=== PATIENT | male | born 1995 | race Caucasian/White ===

== ENCOUNTER 2022-07-03 16:29 | Emergency (ER) | payer OTHER, SELFPAY ==
--- NOTE | ~2022-07-03 | XR_ITS ---
EXAMINATION: XR lumbar spine 2-3V CLINICAL INFORMATION: Reason for Exam pain, no injury COMPARISON: Lumbar spine radiographs TECHNIQUE: 3 views of the lumbar spine FINDINGS: 5 nonrib-bearing lumbar-type vertebral bodies. Vertebral body heights are maintained. Alignment is maintained. Disc space heights are maintained. Paravertebral soft tissues are unremarkable. XR/XR lumbar spine 2-3V IMPRESSION: * No significant degenerative disc disease.
[2022-07-03 16:32] VITALS: BP 114/78; PULSE 100; RESP 16; TEMP 37.2; O2SAT 96; BMI 23.7
--- NOTE | 2022-07-03 17:52 | ED.BACK ---
HPI - Back Pain/Injury General Chief Complaint: Back Pain/Injury Stated Complaint: severe lower back pain Time Seen by Provider: 07/03/22 17:47 Source: patient Mode of arrival: ambulatory Limitations: no limitations History of Present Illness HPI Narrative: 26-year-old male with a past medical history of mental health presents with lower back pain with waking this morning. No known injury or trauma. Patient does report previous episodes of similar pain which resolved with medications. No radiation of pain. No numbness in the groin. No bowel or bladder incontinence. No fevers or chills. Related Data Previous Rx's Medication Instructions Recorded cyclobenzaprine 10 mg tablet 10 mg PO TID PRN muscle spasm #15 07/03/22 tabs lidocaine 5 % topical patch 1 patch topical DAILY #15 ea 07/03/22 (Lidoderm) naproxen 500 mg tablet 500 mg PO BID PRN pain #30 tabs 07/03/22 Allergies Allergy/AdvReac Type Severity Reaction Status Date / Time No Known Allergies Allergy Verified 07/03/22 16:34 Review of Systems Review of Systems: Yes all other systems are reviewed and are negative Constitutional: Constitutional: Reports no additional constitutional complaints, Denies body ache(s), Denies chills, Denies fever(s), Denies headache(s) and Denies weakness Eyes: Eyes: Reports no additional eye complaints and Denies change in vision ENT: Reports system reviewed and no additional complaints, except as documented, Denies dizziness, Denies headache(s), Denies nasal congestion, Denies nasal discharge and Denies neck pain Cardiovascular: Cardiovascular: Reports no additional cardiovascular complaints, Denies chest pain, Denies leg edema and Denies dyspnea Respiratory: Respiratory: Reports no additional respiratory complaints, Denies cough and Denies dyspnea Gastrointestinal: Gastrointestinal: Reports no additional gastrointestinal complaints, Denies abdominal pain, Denies diarrhea, Denies nausea and Denies vomiting Genitourinary: Genitourinary: Denies urinary incontinence Musculoskeletal: Musculoskeletal: Reports no additional musculoskeletal complaints, Reports back pain, Denies arthralgias, Denies joint swelling, Denies neck pain, Denies numbness and Denies tingling Integumentary/Breasts: Skin/Breast: Reports system reviewed and no additional complaints, except as docu and Denies rash Neurologic: Reports system reviewed and no additional complaints, except as documented, Denies Abnormal speech present, Denies dizziness, Denies headache(s), Denies numbness, Denies tingling and Denies weakness PMFSH Past Medical History Attestation statement: The following information was validated with the patient. Source: old records reviewed and nursing notes reviewed Social History Social History (Updated 07/03/22 @ 17:54 by Renee Grijalva NP) Alcohol intake: never Patient Tobacco Use Status: Current everyday Tobacco user Use of substances other than those prescribed or required for medical reasons: No Advance Directives: No Advance Directives Information Provided: No Physical Exam Vital Signs: Vital Signs: Last Vital Signs Temp 98.9 F 07/03/22 16:32 Pulse 100 07/03/22 16:32 Resp 16 07/03/22 16:32 BP 114/78 07/03/22 16:32 Pulse Ox 96 07/03/22 16:32 O2 Del Method 07/03/22 16:32 BMI result Body Mass Index 23.7 Const: General: cooperative, healthy appearing, comfortable and no acute distress Orientation/consciousness: patient oriented x3 Limitations: no limitations HEENT: Head: Yes normal to inspection Ears: hearing grossly normal bilaterally General nose exam: Normal external nose present Face and sinus: Yes normal facial exam Mouth: Normal oral and palatal mucosa present Throat: Yes posterior oropharynx normal Eyes: General: appearance normal, both eyes and all related structures Pupils: Equal, round and reactive pupils present Neck: Neck: Yes normal visual inspection Chest: Chest palpation & inspection: normal inspection of the chest Resp: Effort & Inspection: normal respiratory effort Auscultation: clear to auscultation bilaterally Cardio: Rate: regular rate Rhythm: regular rhythm Peripheral pulses: Peripheral pulses 2+ throughout GI: Inspection: Yes normal to inspection Palpation (GI): Soft to palpation and nontender Auscultation: normal bowel sounds Back/Spine/Pelvis: Other: Tenderness the lumbar mid spine with no step-offs deformities. Pain is worsened with flexion and extension of lumbar spine Thoracic/Lumbar Spine: thoracic and lumbar spine normal to inspection Skin: General skin exam: no rashes or lesions noted Neuro: General: patient oriented x3, moves all extremities, no focal motor deficits and normal sensation to monofilament Cranial nerves: Yes CN's II-XII intact bilaterally, Yes Equal, round and reactive pupils present, Yes Bilaterally intact EOM present, Yes Nystagmus not present, Yes Normal facial strength present and Yes Midline tongue present Cognition (Neuro): normal cognition Speech: No Abnormal speech present Gait exam (Neuro): Normal gait present Motor exam (neuro): 5/5 motor strength present throughout Sensory Exam: Normal double simultaneous stimulation for sensation Deep tendon reflexes (DTR's): Right patellar reflex intensity grade: 2+ and Left patellar reflex intensity grade: 2+ Extrem: General: Yes normal to inspection Course Course Course Narrative: X-ray show no bony abnormality. ? lumbar strain or lumbar radiculopathy or herniated disc. Will discharge home with NSAID, low-dose muscle relaxant, medicated patches. Reviewed worrisome signs and symptoms of when to return to the emergency room. Comfortable discharge home. Low concern for epidural abscess with no history of IV drug abuse, immunocompromised state, reports of fever, neurological deficits. Low concern for cord compression with no neurological deficits, reports of incontinence or retention or saddle anesthesia MDM - Back Pain/Injury MDM Narrative Medical decision making narrative: 26-year-old male here with reports of waking with low back pain. No injury or trauma. No neurological deficits or red flag symptoms. Check x-rays due to midline tenderness and provide analgesia Medical Records Attestation: I reviewed the patient's medical records. Lab Data Attestation: I reviewed the patient's lab results. Imaging Data lumbar x-ray: Attestation: I personally reviewed and interpreted this imaging study as follows: Radiologist's impression: [address] [address] XRay Report Signed Patient: Hector Menezes MR#: [id number] : 1995 Acct:[id number] Age/Sex: 26 / M ADM Date: 07/03/22 Loc: [facility].ED Attending Dr: Ordering Physician: Renee Grijalva NP Date of Service: 07/03/22 Procedure(s): XR lumbar spine 2-3V Accession Number(s): [id number] cc: Renee Grijalva NP~ EXAMINATION: XR lumbar spine 2-3V CLINICAL INFORMATION: Reason for Exam pain, no injury COMPARISON: Lumbar spine radiographs TECHNIQUE: 3 views of the lumbar spine FINDINGS: 5 nonrib-bearing lumbar-type vertebral bodies. Vertebral body heights are maintained. Alignment is maintained. Disc space heights are maintained. Paravertebral soft tissues are unremarkable. XR/XR lumbar spine 2-3V IMPRESSION: ? *? No significant degenerative disc disease. ? ? Discharge Plan Discharge Clinical Impression: Strain of lumbar region Patient Disposition: Home, Self-Care Instructions: Low Back Strain (ED), Lower Back Exercises (ED) Additional Instructions: heat or ice gentle stretching no heavy lifting or bending Follow-up with your PCP for any persistent symptoms Prescriptions: New cyclobenzaprine 10 mg tablet 10 mg PO TID PRN (Reason: muscle spasm) Qty: 15 0RF naproxen 500 mg tablet 500 mg PO BID PRN (Reason: pain) Qty: 30 0RF lidocaine [Lidoderm] 5 % adhesive patch,medicated 1 patch topical DAILY Qty: 15 0RF Rx Instructions: leave on most painful area for up to 12 hrs Referrals: Physician,Unknown J [Primary Care Provider] - 1 week (for persistent symptoms )
[2022-07-03] MEDS: Ketorolac Tromethamine 60 MG/2 ML VIAL IM (18:11)
== END 2022-07-03 19:02 | disposition home or self-care (01) ==
PROVIDERS: Emergency Provider Emergency Medicine
DX: S39.012A Strain of muscle, fascia and tendon of lower back, initial encounter (principal); X58.XXXA Exposure to other specified factors, initial encounter; F17.200 Nicotine dependence, unspecified, uncomplicated; Y93.84 Activity, sleeping; Y92.013 Bedroom of single-family (private) house as the place of occurrence of the external cause; Y99.9 Unspecified external cause status
CPT/HCPCS: 72100; 96372; 99283; 99284; J1885

== ENCOUNTER 2023-10-06 16:45 | Emergency (ER) | payer OTHER, SELFPAY ==
[2023-10-06 17:07] VITALS: BP 137/80; PULSE 105; RESP 16; TEMP 36.4; O2SAT 95; BMI 29.3
--- NOTE | 2023-10-06 18:10 | ED_ITS ---
HPI - General Adult General Chief complaint: Skin/Abscess/Foreign Body Stated complaint: scabies Time Seen by Provider: 10/06/23 17:14 Source: patient Mode of arrival: ambulatory Limitations: no limitations History of Present Illness HPI narrative: 28-year-old male presents ED for generalized body itching. Patient exposed to confirmed case of scabies at nursing home. Patient's other nursing home members also having symptoms. Patient denies any chest pain or shortness of breath Related Data Previous Rx's Medication Instructions Recorded ondansetron HCl 4 mg tablet 4 mg PO Q8H PRN nausea and 03/02/23 vomiting 5 days #15 tabs permethrin 5 % topical cream 1 appl topical Q14D 2 doses #60 10/06/23 grams Allergies Allergy/AdvReac Type Severity Reaction Status Date / Time No Known Allergies Allergy Verified 10/06/23 17:07 Review of Systems Review of Systems: KB exposure, itchiness Yes all other systems are reviewed and are negative [facility] Social History Social History Alcohol intake: never Patient Tobacco Use Status: Current everyday Tobacco user Advance Directives: No Advance Directives Information Provided: No Physical Exam ED Vital Signs: Vital Signs - 24 hr 10/06/23 17:07 Temperature 97.6 F Pulse Rate 105 H Respiratory Rate 16 Blood Pressure 137/80 Pulse Oximetry 95 Oxygen Delivery Method Room Air BMI result Body Mass Index 29.3 Const General: cooperative, healthy appearing, comfortable, no acute distress, well developed, alert, awake and Physically active Orientation/consciousness: oriented to person, oriented to place, oriented to time and patient oriented x3 HENMT Head: Yes normal to inspection, Yes No palpable skull fracture present, Yes normocephalic and Yes atraumatic Eyes General: appearance normal, both eyes and all related structures Neck Neck: Yes normal visual inspection, Yes full ROM, Yes no lymphadenopathy, Yes no meningeal signs, Yes trachea midline, Yes supple, No anterior neck swelling and No tender Chest Chest palpation & inspection: normal inspection of the chest Resp Effort & Inspection: normal respiratory effort and able to speak in complete sentences Auscultation: clear to auscultation bilaterally Cardio Jugular venous distension: no JVD Heart sounds: S1 normal heart sound present and S2 normal heart sound present GI Inspection: Yes normal to inspection Palpation (GI): not firm, nontender, no guarding and not rigid General: No CVA tenderness and Yes no CVA tenderness Back/Spine/Pelvis Back: no CVA tenderness, No CVA tenderness and No back tenderness Skin General skin exam: no rashes or lesions noted, elasticity normal and turgor normal Neuro General: oriented to person, oriented to place, oriented to time, patient oriented x3, gait normal, tone normal, moves all extremities, Normal light touch and pain sensation, no meningeal signs, no focal motor deficits, CN's II-XI intact bilaterally and normal sensation to monofilament Extrem General: Yes normal to inspection, Yes full ROM and Yes capillary refill normal Psych Appearance: grossly normal, well kempt and not disheveled Medical Decision Making Medical Decision Making MDM Narrative: 28-year-old male presents to the ED for generalized itchiness. Patient expossed to confirm case of scabies at home. Patient states other nursing home members symptomatic. Patient denies any anaphylactic symptoms. Patient denies any chest pain or shortness of breath Differential Diagnosis Differential Diagnoses: The differential diagnosis associated with the presentation includes (Scabies, allergic reaction, contact dermatitis) Admission/Observation Consideration of admission/observation: Escalation of care including admission/observation considered Independent Historian Clinical information obtained from an independent historian. History obtained from or confirmed by: Other (custodial staff) External Record Review External record reviewed: Other (Prior visits) Prescription Management I considered prescription management with: Other (Permethrin) Social Determinants Patient?s care significantly limited by Social Determinants of Health including: Other Social Determinant of Health (lives in nursing home) Discharge Plan Discharge Clinical Impression: Scabies Patient Disposition: Home, Self-Care Instructions: Scabies (ED) Additional Instructions: Return to the ED immediately for any facial swelling, lip swelling, tongue swelling, sensation of throat closing, chest pain, shortness of breath, fever, chills, any other concerning symptoms. Please follow-up with primary care provider Prescriptions: New permethrin 5 % cream 1 appl topical Q14D Qty: 60 0RF Rx Instructions: apply second treatment 14 days after first treatment if live lice remain. L eave on for 8-14 hours and then wash off by shower or bath. No Action ondansetron HCl 4 mg tablet 4 mg PO Q8H PRN (Reason: nausea and vomiting) 5 Days Qty: 15 0RF Interventions: ED Discharge Assessment Last Done: 10/06/23 18:56 Discharge Date/Time: 10/06/23 19:10 Print Language: Turkish
== END 2023-10-06 19:10 | disposition home or self-care (01) ==
PROVIDERS: Emergency Provider Emergency Medicine
DX: B86 Scabies (principal); L29.9 Pruritus, unspecified
CPT/HCPCS: 99282; 99283